=== PATIENT | male | born 1975 | race Caucasian/White ===

== ENCOUNTER → 2021-01-07 | Day surgery (SDC) | payer OTHER ==
[~2021-01-07] MED LIST: Dextrose 5%-0.45% NaCl 1,000 ML IV SCH; Midazolam 1 MG/ML 2 ML SDV IV ONE; Midazolam 1 MG/ML 2 ML SDV ONE; Sodium Chloride 0.9% 10 ML Syringe FLUSH PRN; fentaNYL 100 MCG/2 ML SDV IV ONE; fentaNYL 100 MCG/2 ML SDV ONE
--- NOTE | 2021-01-07 11:16 | OR ---
DATE: 01/07/2021 PROCEDURE: Total colonoscopy and cold snare polypectomy. INSTRUMENT USED: PCF-H190DL Olympus video colonoscope. PREMEDICATIONS: Fentanyl 125 mcg intravenous, Versed 4 mg intravenous. Nasal O2 cannula. The procedure was done under pulse oximetry, BP recording, and staff scientist. INDICATION: Screening colonoscopic examination is done for detection of any polypoid lesions and removal, endoscopic hemostasis therapy if needed. DESCRIPTION OF PROCEDURE: Initial rectal exam showed some anal sphincter spasm. Rigid anoscopy showed small internal hemorrhoids without bleeding from them. The colonoscope was passed with ease. In the proximal rectum, 3 mm sized benign- appearing polyp was noted, photograph was taken, cold snare polypectomy was done, the tissue was retrieved and sent for histopathology. Numerous scattered diverticula were noted in the distal left colon with some deformity. The scope was passed with ease up to the ileocecal area. Photographs were taken of normal- appearing cecum identified by landmarks of appendiceal orifice and double-bulged ileocecal folds. No bleeding was noted from any of the visualized areas at the commencement of the examination. Bowel preparation was found to be adequate. [place] Scale 2 in transverse and left colon, 3 in the right colon, total score 7. No stricture. No vascular ectasia. No large isolated ulcerations seen. No evidence of diffuse inflammatory bowel disease in the form of friability, contact bleeding, or ulcerations. Probing the proximal sides of folds and flexures using adequate distention and clearing up the stool material, withdrawal of the scope was made. Cecum to rectum time over 6 minutes. No bleeding was noted from any of the visualized areas at the completion of the examination. IMPRESSION: 1. Diminutive rectal polyp. 2. Diverticulosis. The patient tolerated the procedure well. [facility] /[id number]
--- NOTE | 2021-01-07 12:16 | LETTER ---
01/07/2021 RE: CELINE GIANG : 1975 [address], [id number] Dear Ms. Burr: Mr. Celine Giang had colonoscopy examination done this morning, and he tolerated the procedure well. I herewith send a copy of the endoscopy note and photographs for your review. Thank you. sincerely, [facility] /[id number]
== END ==
LOC: DL.ENDO 06:00
PROVIDERS: ATTEND Internal Medicine Gastroenterology
DX: Z12.11 Encounter for screening for malignant neoplasm of colon (principal); K62.1 Rectal polyp; K64.8 Other hemorrhoids; K57.30 Diverticulosis of large intestine without perforation or abscess without bleeding; I10 Essential (primary) hypertension; Z80.0 Family history of malignant neoplasm of digestive organs; Z91.030 Bee allergy status
CPT/HCPCS: 45385; 88305; J2250; J3010; J7042

== ENCOUNTER 2022-05-18 22:28 | Emergency (ER) | payer OTHER ==
[2022-05-18] MEDS ORDERED: Sodium Chloride 0.9% 10 ML Syringe FLUSH PRN (23:23)
[2022-05-18 23:54] LABS: AMPHETAMINES,URINE NEGATIVE (NEGATIVE); BARBITURATES,URINE NEGATIVE (NEGATIVE); BENZODIAZEPINE,URINE NEGATIVE (NEGATIVE); MDMA (ECSTASY), URINE NEGATIVE (NEGATIVE); METHADONE,URINE NEGATIVE (NEGATIVE); METHAMPHETAMINES,URINE NEGATIVE (NEGATIVE); OPIATES,URINE NEGATIVE (NEGATIVE); OXYCODONE,URINE NEGATIVE (NEGATIVE); PHENCYCLIDINE,URINE NEGATIVE (NEGATIVE); TCA,URINE NEGATIVE (NEGATIVE)
[2022-05-19 00:08] LABS: ANION GAP 14.9 mEq/L (7-13); CHLORIDE,CL 98 mmol/L (98-107); SODIUM,NA 137 mmol/L (136-145)
[2022-05-19 00:09] LABS: ESTIMATED GFR 109 mL/min (>=60)
== END 2022-05-19 01:32 | disposition home or self-care (01) ==
LOC: DL.ED 22:28
DX: R45.851 Suicidal ideations (principal); F10.920 Alcohol use, unspecified with intoxication, uncomplicated; I10 Essential (primary) hypertension; Y90.8 Blood alcohol level of 240 mg/100 ml or more; Z91.030 Bee allergy status; Z79.899 Other long term (current) drug therapy
CPT/HCPCS: 36415; 80053; 80305-QW; 80307; 81003; 83605; 83735; 84443; 84484; 85025; 86140; 99284